=== PATIENT | female | born 1960 | race Caucasian/White ===

== ENCOUNTER 2017-05-17 05:36 | Day surgery (SDC) | payer OTHER ==
[~2017-05-17] VITALS: Ht 162.6 cm; Wt 70.2 kg
[~2017-05-17 05:36] MED LIST: ALIVE WOMEN'S1 EACH PO; AVITA20 GM TP; BUPROPION HCL200 M1 PO; CALCIPOTRIENE60 G1 TP; DOXYCYCLINE HYC20 MG PO; NORVASC5 MG PO; PROBIOTIC ACID1 EAC3 PO; RESTASIS MULTI5.5 ML BOTH EYES; TEMOVATE 0.05%30 GM TP; TOPROL XL25 MG PO; VITA FUSION PO; ZESTORETIC 20-1 EAC1 PO; ZESTORETIC 20-1 EAC2 PO
[2017-05-17 06:11] VITALS: BP 130/78
[2017-05-17] MEDS ORDERED: OXAYDO5 MG PO (08:21)
[2017-05-17 09:10] VITALS: BP 111/72
[2017-05-17 10:22] VITALS: BP 103/61
[2017-05-20 14:59] LABS: INTERNAL CONTROL VALID? YES
== END 2017-05-17 10:24 | disposition home or self-care (01) ==
LOC: SDC 05:36
PROVIDERS: Surgery
DX: D01.3 Carcinoma in situ of anus and anal canal (principal); I10 Essential (primary) hypertension; E55.9 Vitamin D deficiency, unspecified; F41.8 Other specified anxiety disorders; Z83.71 Family history of colonic polyps
CPT/HCPCS: 84703; 88305; J1170; J1885; J2250; J2405; J3010; J7050; S0020; S0074

== ENCOUNTER 2017-08-23 08:37 | Day surgery (SDC) | payer OTHER ==
[~2017-08-23] VITALS: Ht 162.6 cm; Wt 72.6 kg
[~2017-08-23 08:37] MED LIST changes: -BUPROPION HCL200 M1 PO; +OXAYDO5 MG PO; +WELLBUTRIN100 MG PO
[2017-08-23 09:26] VITALS: BP 118/70
[2017-08-23] MEDS ORDERED: OXAYDO5 MG PO (12:24)
[2017-08-23 14:25] VITALS: BP 111/68
[2017-08-23 15:20] VITALS: BP 100/57
[2017-08-23 15:58] VITALS: BP 92/50
== END 2017-08-23 16:00 | disposition home or self-care (01) ==
LOC: SDC 08:37
PROC: 0DBP7ZX Excision of Rectum, Via Natural or Artificial Opening, Diagnostic (ICD-10-PCS; principal; 2017-08-23)
DX: D01.2 Carcinoma in situ of rectum (principal); D01.3 Carcinoma in situ of anus and anal canal
CPT/HCPCS: 88305; J1100; J1170; J1885; J2405; J3010; Q0175; S0020; S0074

== ENCOUNTER 2017-10-14 05:42 | Day surgery (SDC) | payer OTHER ==
[~2017-10-14] VITALS: Ht 162.6 cm; Wt 72.6 kg
[2017-10-14 07:03] VITALS: BP 102/71
[2017-10-14] MEDS ORDERED: OXYCODONE HCL5 MG PO (08:36)
[2017-10-14 10:40] VITALS: BP 97/62
[2017-10-14 11:27] VITALS: BP 85/53
[2017-10-14 12:18] VITALS: BP 85/54
[2017-10-14 13:25] VITALS: BP 84/54
[2017-10-14 14:35] VITALS: BP 95/51
== END 2017-10-14 14:46 | disposition home or self-care (01) ==
LOC: SDC 05:42
DX: C21.1 Malignant neoplasm of anal canal (principal); E78.00 Pure hypercholesterolemia, unspecified; F41.8 Other specified anxiety disorders; R73.09 Other abnormal glucose; E55.9 Vitamin D deficiency, unspecified; Z80.3 Family history of malignant neoplasm of breast; Z80.6 Family history of leukemia; Z83.3 Family history of diabetes mellitus; Z83.71 Family history of colonic polyps; Z88.8 Allergy status to other drugs, medicaments and biological substances
CPT/HCPCS: 88305; 88331; 88332; J1100; J1170; J1885; J2405; Q0175; S0020; S0074